=== PATIENT | male | born 1970 | race African-American/Black ===

== ENCOUNTER 2016-08-12 21:19 | Emergency (ER) | payer BC, OTHER ==
--- NOTE | 2016-08-12 22:33 | ER Document Report ---
ED General - General Chief Complaint: Shoulder Pain Stated Complaint: ARM PAIN Time Seen by Provider: 08/12/16 22:10 Notes: Patient is a 45-year-old male presents with complaint of right shoulder pain. 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 He said every time he moves his right shoulder he has severe pain into the shoulder. Most of the pain is on the posterior aspect of the shoulder. No chest pain. No abdominal pain. No specific injuries. No numbness or weakness into the right hand. TRAVEL OUTSIDE OF THE [place] IN LAST 30 DAYS: No - Related Data Allergies/Adverse Reactions: No Known Allergies Allergy (Verified 05/20/15 23:30) Past Medical History - Social History Smoking Status: Never Smoker Frequency of alcohol use: None Drug Abuse: None Family History: Hypertension Patient has suicidal ideation: No Patient has homicidal ideation: No - Past Medical History Cardiac Medical History: Reports: Hx Hypertension Renal/ Medical History: Denies: Hx Peritoneal Dialysis - Immunizations Hx Diphtheria, Pertussis, Tetanus Vaccination: Yes Review of Systems - Review of Systems Notes: My Normal Review Basic REVIEW OF SYSTEMS: CONSTITUTIONAL : Denies fever, chills, or sweats. Denies recent illness. CARDIOVASCULAR: Denies chest pain. RESPIRATORY: Denies cough, cold, or chest congestion. Denies shortness of breath, difficulty breathing, or wheezing. GASTROINTESTINAL: Denies abdominal pain. Denies nausea, vomiting, or diarrhea. Denies constipation. MUSCULOSKELETAL: Right shoulder pain. NEUROLOGICAL: Denies sensory or motor loss. ALL OTHER SYSTEMS REVIEWED AND NEGATIVE. Physical Exam - Vital signs Vitals: Temp Pulse Resp BP Pulse Ox 97.8 F 75 18 183/99 H 95 08/12/16 21:34 08/12/16 21:34 08/12/16 21:34 08/12/16 21:34 08/12/16 21:34 - Notes Notes: General Appearance: Well nourished, alert, cooperative, no acute distress, mild to moderate obvious discomfort. Vitals: reviewed, See vital signs table. Head: no swelling or tenderness to the head Eyes: PERRL, EOMI, Conjuctiva clear Extremities: strength 5/5 in all extremities, good pulses in all extremities, patient's has his right arm in the homemade sling. Patient has tenderness to palpation over the scapula and just appeared to scapula on the right side. Patient's is only able to abduct his arm away from his body approximately 15-20 . He is only able to do slight external rotation of the shoulder. He has good range of motion and movement of the elbow wrist and hand. Good distal sensation to the hand. Skin: warm, dry, appropriate color, no rash Neuro: speech clear, oriented x 3, normal affect, responds appropriately to questions. Course - Vital Signs Vital signs: Temp Pulse Resp BP Pulse Ox 97.9 F 61 16 171/97 H 98 08/12/16 23:03 08/12/16 23:03 08/12/16 23:03 08/12/16 23:03 08/12/16 23:03 - Transfer of Care Notes: 08/13/16 05:37 Patient has findings consistent with a rotator cuff tear. Informed him of this. I will for him to the orthopedist for further evaluation and possible MRI of the toes needed. I told the patient he'll most likely will need physical therapy. I have written a work note form. I've given him a sling. Encourage him to return to ER if has further concerns. Dictation of this chart was performed using voice recognition software; therefore, there may be some unintended grammatical errors. Discharge - Discharge Clinical Impression: Shoulder strain Qualifiers: Encounter type: initial encounter Laterality: right Qualified Code(s): S46.911A - Strain of unspecified muscle, fascia and tendon at shoulder and upper arm level, right arm, initial encounter Condition: Good Disposition: HOME, SELF-CARE Additional Instructions: Based on your physical exam was suspect that you have a rotator cuff tear of your right shoulder. Please wear the sling for the next several days. Please do take your arm out of the sling a few times a day to put his shoulder through gentle range of motion so that he did not develop a frozen shoulder. Please follow-up with your doctor or the orthopedist for reevaluation and for potential referral to physical therapy. Return to ER if you have further concerns. Prescriptions: Ibuprofen [Motrin 600 Mg Tablet] 600 mg PO TID #15 tablet Forms: Special Work Note, Return to Work Referrals: MYRIAM TAMEZ MD [Primary Care Provider] - 08/14/16 DALIA HARO MD [ACTIVE STAFF] - 08/14/16
[2016-08-12 23:11] VITALS: BP 171/97
== END 2016-08-12 23:03 | disposition home or self-care (01) ==
LOC: ER 21:19
DX: S46.911A Strain of unspecified muscle, fascia and tendon at shoulder and upper arm level, right arm, initial encounter (principal); M25.511 Pain in right shoulder; X58.XXXA Exposure to other specified factors, initial encounter; I10 Essential (primary) hypertension
CPT/HCPCS: 99283

== ENCOUNTER 2017-09-26 12:37 | Emergency (ER) | payer SELFPAY ==
[2017-09-26] MEDS ORDERED: DEXAMETHASONE SOD PHOS INJ 10 MG/1 ML VIAL IM ONE (14:07)
[2017-09-26] MEDS ORDERED: LIDOCAINE 5% (700 MG) TRANSDERMAL ADH..PATCH TP ONE (14:07)
[2017-09-26] MEDS ORDERED: KETOROLAC TROMETHAMINE 60 MG/2 ML SDV IM ONE (14:07)
--- NOTE | 2017-09-26 14:45 | ER Document Report ---
ED Neck/Back Problem - General Chief Complaint: Back Pain Stated Complaint: BACK/HIP PAIN Time Seen by Provider: 09/26/17 14:00 Mode of Arrival: Ambulatory Information source: Patient Notes: 47-year-old male presents to ED for complaint of lower back pain and hip pain since Wednesday. He states he jumped off the tailgate of a truck on Wednesday and pain started on Wednesday. Patient is alert and oriented, respirations regular and unlabored, speaking in full sentences, patient is able to ambulate with a even steady gait. TRAVEL OUTSIDE OF THE [place] IN LAST 30 DAYS: No - HPI Patient complains to provider of: Pain, Lower back Onset: Other - wednesday Where: Home, Outdoors Onset: Chronic Timing: Still present Quality of pain: Sharp Severity: Severe Pain Level: 5 Recent injury: Possibly Associated symptoms: Like prior neck/back pain, Lower back pain. denies: Incontinence, Motor loss, Numbness/tingling, Radiation to arm, Radiation to chest, Radiation to leg, Sensory loss, Sweaty, Unable to urinate, Upper back pain Exacerbated by: Movement of trunk, Sitting position Relieved by: Nothing Similar symptoms previously: Yes Recently seen / treated by doctor: No - Related Data Allergies/Adverse Reactions: No Known Allergies Allergy (Verified 05/20/15 23:30) Past Medical History - General Information source: Patient - Social History Smoking Status: Never Smoker Cigarette use (# per day): No Chew tobacco use (# tins/day): No Smoking Education Provided: No Frequency of alcohol use: None Drug Abuse: None Occupation: concrete Lives with: Alone Family History: Hypertension Patient has suicidal ideation: No Patient has homicidal ideation: No - Past Medical History Cardiac Medical History: Reports: Hx Hypertension Pulmonary Medical History: Reports: None EENT Medical History: Reports: None Neurological Medical History: Reports: None Endocrine Medical History: Reports: None Renal/ Medical History: Reports: None Malignancy Medical History: Reports None GI Medical History: Reports: None Musculoskeltal Medical History: Reports Hx Arthritis, Reports Hx Musculoskeletal Deformity, Reports Hx Musculoskeletal Trauma Skin Medical History: Reports None Psychiatric Medical History: Reports: None Traumatic Medical History: Reports: Hx Fractures - arm Infectious Medical History: Reports: None Surgical Hx: Negative Past Surgical History: Reports: None - Immunizations Hx Diphtheria, Pertussis, Tetanus Vaccination: Yes Review of Systems - Review of Systems Constitutional: No symptoms reported EENT: No symptoms reported Cardiovascular: No symptoms reported Respiratory: No symptoms reported Gastrointestinal: No symptoms reported Genitourinary: No symptoms reported Male Genitourinary: No symptoms reported Musculoskeletal: Back pain, Muscle pain, Muscle stiffness Skin: No symptoms reported Hematologic/Lymphatic: No symptoms reported Neurological/Psychological: No symptoms reported -: Yes All other systems reviewed and negative Physical Exam - Vital signs Vitals: Temp Pulse Resp BP Pulse Ox 98.6 F 84 16 158/90 H 96 09/26/17 12:41 09/26/17 12:41 09/26/17 12:41 09/26/17 12:41 09/26/17 12:41 Interpretation: Normal - General General appearance: Appears well, Alert - HEENT Head: Normocephalic, Atraumatic Eyes: Normal Pupils: PERRL - Respiratory Respiratory status: No respiratory distress Chest status: Nontender Breath sounds: Normal Chest palpation: Normal - Cardiovascular Rhythm: Regular Heart sounds: Normal auscultation Murmur: No - Abdominal Inspection: Normal Distension: No distension Bowel sounds: Normal Tenderness: Nontender Organomegaly: No organomegaly. No: Mass - No pulsatile masses noted - Back Back: Normal, Tender, Vertebra tenderness. No: Deformity/step-off, CVA tenderness, Scars, Scoliosis, Wounds - Extremities General upper extremity: Normal inspection, Nontender, Normal color, Normal ROM , Normal temperature General lower extremity: Normal inspection, Nontender, Normal color, Normal ROM , Normal temperature, Normal weight bearing. No: Martha's sign - Neurological Neuro grossly intact: Yes Cognition: Normal Orientation: AAOx4 [place] Coma Scale Eye Opening: Spontaneous Nick Coma Scale Verbal: Oriented Nick Coma Scale Motor: Obeys Commands Nick Coma Scale Total: 15 Speech: Normal Motor strength normal: LUE, RUE, LLE, RLE Sensory: Normal - Psychological Associated symptoms: Normal affect, Normal mood - Skin Skin Temperature: Warm Skin Moisture: Dry Skin Color: Normal Course - Re-evaluation Re-evalutation: 09/26/17 15:20 Patient was treated with Toradol, Decadron, and Lidoderm patch for his lower back pain. He states he jumped off a truck on Wednesday pain started on Wednesday. He states he has not been taking any medications for this pain has not taken anything and is not followed up with his primary doctor since the pain started. He has a history of degenerative disc disease and knows that he needs to follow-up with his primary doctor. He has a primary doctor Dr. Tamez but says he has not been to him in a while. After performing a Medical Screening Examination, I estimate there is LOW risk for EXPANDING OR RUPTURED ABDOMINAL AORTIC ANEURYSM, CAUDA EQUINA SYNDROME, EPIDURAL MASS LESION, or HERNIATED DISK CAUSING SEVERE SPINAL STENOSIS, thus I consider the discharge disposition reasonable. I have reevaluated this patient multiple times and no significant life threatening changes are noted. The patient and I have discussed the diagnosis and risks, and we agree with discharging home and close follow-up. We also discussed returning to the Emergency Department immediately if new or worsening symptoms occur with the understanding that symptoms and presentations can change. We have discussed the symptoms which are most concerning (e.g., saddle anesthesia, urinary or bowel incontinence or retention, changing or worsening pain) that necessitate immediate return. - Vital Signs Vital signs: Temp Pulse Resp BP Pulse Ox 98.6 F 83 16 148/79 H 97 09/26/17 12:41 09/26/17 15:45 09/26/17 15:45 09/26/17 15:45 09/26/17 15:45 - Diagnostic Test Radiology reviewed: Image reviewed, Reports reviewed Discharge - Discharge Clinical Impression: Acute exacerbation of chronic low back pain Condition: Stable Disposition: HOME, SELF-CARE Additional Instructions: Chronic Back Pain Chronic back pain (pain persisting longer than three months) is a common problem. A medical evaluation can look for herniated disc, arthritis, osteoporosis, tumors, and infections. But at least half the time, there's no obvious treatable cause. Anxiety and depression tend to worsen back pain. Ibuprofen or other anti-inflammatory medicine can help. A heating pad, used for 15-20 minutes at a time, can ease pain. For this type of back pain, narcotic medicines should be avoided. Muscle relaxers are rarely helpful unless you're having spasms. Activity is important. Find an aerobic exercise program that your back can tolerate. Too much rest makes back pain worse. Specific back exercises are usually prescribed to strengthen the back and abdominal muscles. Often, a physical therapist can help. Avoid heavy lifting, working while bent over, or standing with both knees straight. Most back pain patients do better with a firm mattress. If new symptoms of a "herniated disc" (radiation of pain, numbness, or tingling down the back of the leg or weakness in the leg) occur, you should be re-examined. LOW BACK PAIN: Three out of every four people will have an episode of disabling back pain during their lifetime. Most commonly the pain is due to straining of the muscles and ligaments in the low back. Usual treatment includes: (1) Rest on a firm surface. Avoid lying on your stomach. (2) Ice pack the painful area. After a few days, gentle heat may be used intermittently to relax the area, or ice packs can be continued. (3) Medication may be needed -- muscle relaxers and antiinflammatory medicines are commonly used. (4) As the back improves, exercises are prescribed to strengthen the back and abdominal muscles. Your doctor will advise you on the proper care for your back at each stage in your recovery. You may be better in a few days -- or healing may take several weeks. If new symptoms of a "herniated disc" (radiation of pain, numbness, or tingling down the back of the leg or weakness in the leg) occur, you should be re-examined. Further testing may be necessary. Toradol Injection You have been given an injection of ketorolac tromethamine (Toradol). This is an excellent, safe drug for pain control. It also has potent antiinflammatory action. You should have significant pain relief within about one hour. Toradol is not addicting and is non-sedating. It does not interfere with driving or work. Call or return if you develop itching, hives, shortness of breath, or rash. STEROID MEDICATION: You have been given a medicine of the cortisone/steroid class. This medication is used to control inflammation or allergy. It is usually only given for a short period of time, until the acute process subsides. There are usually no side effects from short-term use of cortisone-like medications. Some persons feel an increased sense of well-being and are not sleepy at bedtime. Long-term use of cortisone medications is best avoided, unless required for a severe condition. If your condition does not remit, or relapses after the course of corticosteroid medication, you should consult your physician. Stretching Exercises for the Back The physician has recommended that you begin stretching exercises for your back. These are often used even while the back is painful. However, you should notify the physician if the activities seem to increase your pain. PELVIC TILT: Lie flat on your back with knees bent. Tighten your stomach and buttock muscles so it flattens your lower back against the floor. Hold 10 seconds. Repeat 10 times, twice daily. KNEE RAISE: Lying on the back with knees bent, raise one knee to your chest, then the other. Hold both knees against the chest 10 seconds, then lower one knee at a time. Repeat 10 times, twice daily. PARTIAL TRUNK RAISE: Lie face down, arms at your sides. Keeping your waist on the floor, use your arms raise your chest up. Support yourself on your elbows for 30 seconds. Repeat twice daily, increasing the time to two minutes as you recover. MUSCLE RELAXERS: Muscle relaxing medications are usually prescribed for acute muscle spasm or injury to the neck and back. They are often combined with antiinflammatory pain medication for increased relief. You may stop the muscle relaxer when the pain and stiffness have improved. Start the medication again if spasms recur. Muscle relaxers may cause drowsiness, especially with the first dose. Do not operate machinery or drive while under the effects of the medication. Most muscle relaxers last up to 24 hours. Do not combine the medication with alcohol. ICE PACKS: Apply ice packs frequently against the painful area. Many different schedules are recommended, such as "20 minutes on, 20 minutes off" or "one hour ice, two hours rest." If you need to work, you may need to go longer between ice treatments. You should plan to have the area ice packed AT LEAST one fourth of the time. The ice should be applied over the wrap, tape, or splint, or over a layer of cloth -- not directly against the skin. Some ice bags have a built-in cloth and can be put directly on the skin. WARM PACKS: After approximately two days, apply gentle heat (such as a heating pad or hot water bottle) for about 20 to 30 minutes about every two hours -- at least four times daily. Warmth and elevation will help you make a more rapid recovery , and will ease the pain considerably. Do not use HOT heat, and never apply heat for longer than 30 minutes. The continuous heat can invisibly damage skin and muscles -- even when no burn is seen on the surface. Damaged muscles can make you MORE sore. The Lidoderm patch that was applied to the back needs to be removed 12 hours from when it was placed. Tomorrow morning when you wake up you can use Aspercreme lidocaine cream will have a similar effect as the Lidoderm patch. It is not quite as strong as the Lidoderm patch but prescription lidocaine patches are about $300 a month and the Aspercreme is much cheaper. It is important that you follow-up with your primary doctor and have him with refer you to a back specialist if the pain continues. Also need to follow-up with your primary doctor in some new elevated blood pressure today. You state that your blood pressure is much better than that normally but today was very high. FOLLOW-UP CARE: If you have been referred to a physician for follow-up care, call the physician s office for an appointment as you were instructed or within the next two days. If you experience worsening or a significant change in your symptoms, notify the physician immediately or return to the Emergency Department at any time for re-evaluation. Prescriptions: Cyclobenzaprine HCl [Flexeril 10 mg Tablet] 10 mg PO TIDP PRN #15 tab PRN Reason: Prednisone [Deltasone 20 mg Tablet] 3 tab PO DAILY 3 Days tablet Forms: Elevated Blood Pressure, Return to Work Referrals: MYRIAM TAMEZ MD [Primary Care Provider] - Follow up as needed
--- NOTE | 2017-09-26 15:07 | RADIOLOGY REPORT (SQ) ---
EXAM DESCRIPTION: L SPINE WHOLE COMPLETED DATE/TIME: 09/26/2017 2:42 pm REASON FOR STUDY: jump off tailgate sever pain hx ddd COMPARISON: None. NUMBER OF VIEWS: Five views including obliques. TECHNIQUE: AP, lateral, oblique, and sacral radiographic images acquired of the lumbar spine. LIMITATIONS: None. FINDINGS: MINERALIZATION: Normal. SEGMENTATION: Normal. No transitional anatomy. ALIGNMENT: Subtle grade 1 listhesis at L4-5. VERTEBRAE: Maintained height. No fracture or worrisome bone lesion. DISCS: Generally maintained. Slight height loss with minimal spurring suggested at L4-5. POSTERIOR ELEMENTS: Pedicles and facets are intact. No pars defect or posterior arch defects. HARDWARE: None in the spine. PARASPINAL SOFT TISSUES: Normal. PELVIS: Intact as visualized. No fractures or worrisome bone lesions. SI joints intact. OTHER: No other significant finding. IMPRESSION: Mild spondylosis, L4-5 disc disease. No evidence of fracture or worrisome bone lesion. TECHNICAL DOCUMENTATION: JOB ID: [id number] [employer]- All Rights Reserved Reading location - IP/workstation name: [email or web address]
[2017-09-26 15:47] VITALS: BP 148/79
== END 2017-09-26 15:45 | disposition home or self-care (01) ==
LOC: ER 12:37
DX: M54.5 Low back pain (principal); G89.29 Other chronic pain; M25.559 Pain in unspecified hip; Y30.XXXA Falling, jumping or pushed from a high place, undetermined intent, initial encounter; I10 Essential (primary) hypertension
CPT/HCPCS: 99284; 72110; J1885; J1100

== ENCOUNTER 2018-08-05 01:06 | Emergency (ER) | payer SELFPAY ==
[2018-08-05 01:15] VITALS: BP 164/98
[2018-08-05] MEDS ORDERED: CEPHALEXIN 500 MG CAPSULE PO ONE (01:49)
[2018-08-05] MEDS ORDERED: IBUPROFEN 600 MG TABLET PO ONE (01:49)
--- NOTE | 2018-08-05 01:56 | ER Document Report ---
ED Hand/Wrist Injury - General Chief Complaint: Finger Injury Stated Complaint: POSSIBLE SPLINTER IN FINGER Time Seen by Provider: 08/05/18 01:26 Primary Care Provider: MYRIAM TAMEZ MD [Primary Care Provider] - Follow up as needed TRAVEL OUTSIDE OF THE [place] IN LAST 30 DAYS: No - HPI Notes: Patient is a 47-year-old male that presents to the emergency department for chief complaint of left middle finger splinter. Patient states he got a wooden splinter in his left middle finger around 11:30 AM on 08/04/2018. He attempted to remove the splinter with a needle and reports i ncreased pain and swelling of the finger since. He has not taken any medication at home for pain. He has not iced the area. He denies any associated fevers or chills. He describes it as a achy pressure sensation. He denies any relieving factors. The pain is worse with any movement or palpation of the finger Past Medical History: Hypertension Past Surgical History: Negative Social History: Reviewed in chart Family History: Reviewed and noncontributory for presenting illness Allergies: Reviewed, see documented allergy list. REVIEW OF SYSTEMS: CONSTITUTIONAL : No fever No chills No diaphoresis No recent illness EENT: No vision changes No congestion No sore throat CARDIOVASCULAR: No chest pain No palpitations RESPIRATORY: No shortness of breath No cough No difficulty breathing GASTROINTESTINAL: No abdominal pain No nausea No vomiting No diarrhea GENITOURINARY: No dysuria No hematuria No difficulty urinating MUSCULOSKELETAL: No back pain Left middle finger pain No arm pain SKIN: No rashes No lesions LYMPHATIC: No swollen, enlarged glands. NEUROLOGICAL: No lightheadedness No headache No weakness No paresthesias PSYCHIATRIC: No anxiety No depression PHYSICAL EXAMINATION: Vital signs reviewed, nursing noted reviewed. GENERAL: Well-appearing, well-nourished and in no acute distress. HEAD: Atraumatic, normocephalic. EYES: Eyes appear normal, extraocular movements intact, sclera anicteric, conjunctiva are normal. ENT: nares patent, oropharynx clear without exudates. Moist mucous membranes. NECK: Normal range of motion, supple without lymphadenopathy LUNGS: Breath sounds clear to auscultation bilaterally and equal. No wheezes rales or rhonchi. HEART: Regular rate and rhythm without murmurs ABDOMEN: Soft, nontender, normoactive bowel sounds. No rebound, guarding, or rigidity. No masses appreciated. EXTREMITIES: No diffuse left finger edema, normal range of motion of left middle finger, no bony tenderness of left middle finger. No long bone deformity or tenderness. NEUROLOGICAL: No focal neurological deficits. Moves all extremities spontaneously Motor and sensory grossly intact on exam. PSYCH: Normal mood, normal affect. SKIN: Warm, Dry, normal turgor, small abrasion over left palmar middle finger between DIP and PIP joint with mild surrounding edema and erythema. - Related Data Allergies/Adverse Reactions: No Known Allergies Allergy (Verified 05/20/15 23:30) Past Medical History - Social History Smoking Status: Unknown if Ever Smoked Family History: Hypertension - Past Medical History Cardiac Medical History: Reports: Hx Hypertension Renal/ Medical History: Denies: Hx Peritoneal Dialysis Musculoskeletal Medical History: Reports Hx Arthritis, Reports Hx Musculoskeletal Deformity, Reports Hx Musculoskeletal Trauma Traumatic Medical History: Reports: Hx Fractures - arm - Immunizations Hx Diphtheria, Pertussis, Tetanus Vaccination: Yes Physical Exam - Vital signs Vitals: Temp Pulse Resp BP Pulse Ox 97.9 F 56 L 22 H 164/98 H 95 08/05/18 01:14 08/05/18 01:14 08/05/18 01:14 08/05/18 01:14 08/05/18 01:14 Course - Re-evaluation Re-evalutation: 08/05/18 01:56 Vitals reviewed. Nursing notes reviewed. Patient has an abrasion over his left middle finger where he has tried to did get out a splinter. No foreign material is seen or able to be palpated. He has some mild localized surrounding erythema and edema. There are no signs of flexor tenosynovitis and he has normal range of motion of his left middle finger. Patient was given Motrin and ice for symptomatic management and will be started on Keflex for early infection. I did career guidance counselor him on return precautions and wound management. Patient has requested that I perform surgical exploration of the wound to remove any further foreign material. I do not appreciate any retained foreign material and at this point feel the risk of infection from wound exploration is higher than the benefit of removing a possible splinter. Patient will follow with his PCP. - Vital Signs Vital signs: Temp Pulse Resp BP Pulse Ox 97.9 F 56 L 22 H 164/98 H 95 08/05/18 01:14 08/05/18 01:14 08/05/18 01:14 08/05/18 01:14 08/05/18 01:14 Discharge - Discharge Clinical Impression: Abrasion of left middle finger with infection Condition: Stable Disposition: HOME, SELF-CARE Instructions: Cellulitis ([facility]) Additional Instructions: Please return to the emergency department if you have any worsening, or concern of your symptoms. Please return to the emergency department if you develop chest pain, difficulty breathing, severe abdominal pain, or ongoing vomiting. Please follow-up with your primary care physician in 1-2 days and any other recommended physicians. If prescribed, take all medications as directed. If you have any questions or concerns do not hesitate to return the emergency department for evaluation. Wash your left middle finger with copious amounts of warm soapy water at least 2-3 times a day and any time the area gets dirty. Keep this area clean and dry and do not try to take out any more of the splinter Prescriptions: Cephalexin Monohydrate [Keflex 500 mg Capsule] 500 mg PO Q6H 5 Days capsule Referrals: MYRIAM TAMEZ MD [Primary Care Provider] - Follow up tomorrow
== END 2018-08-05 02:06 | disposition home or self-care (01) ==
LOC: ER 01:06
DX: S60.413A Abrasion of left middle finger, initial encounter (principal); X58.XXXA Exposure to other specified factors, initial encounter; I10 Essential (primary) hypertension
CPT/HCPCS: 99283